=== PATIENT | female | born 1995 | race Caucasian/White ===

== ENCOUNTER 2017-09-17 23:29 | Observation (INO) | payer BC ==
[~2017-09-17] VITALS: Ht 157.5 cm; Wt 102.1 kg
[2017-09-18 01:16] LABS: BILIRUBIN,URINE NEGATIVE (NEGATIVE); CLARITY/URINE CLEAR (CLEAR); COLOR,URINE YELLOW (YELLOW); GLUCOSE,URINE NEGATIVE (NEGATIVE); KETONES,URINE NEGATIVE (NEGATIVE); LEUKOCYTE ESTERASE ,URINE NEGATIVE (NEGATIVE); NITRITE, URINE NEGATIVE (NEGATIVE); PROTEIN URINE NEGATIVE (NEGATIVE); UROBILINOGEN,URINE 0.2 (0.2-1.0)
[2017-09-18 01:17] LABS: BLOOD, URINE TRACE (NEGATIVE)
[2017-09-18 01:24] LABS: BACTERIA,URINE FEW /HPF (None Seen); RBC,URINE 0-3 /HPF (0-3); WBC,URINE 0-3 /HPF (0-3)
== END 2017-09-18 01:26 | disposition home or self-care (01) ==
LOC: SPU 23:29
PROVIDERS: ADMIT Obstetrics & Gynecology; ATTEND Obstetrics & Gynecology
DX: O42.912 Preterm premature rupture of membranes, unspecified as to length of time between rupture and onset of labor, second trimester (principal); O26.892 Other specified pregnancy related conditions, second trimester; R10.9 Unspecified abdominal pain; Z3A.26 26 weeks gestation of pregnancy
CPT/HCPCS: 59025; 76815; 81000; G0378 ×2

== ENCOUNTER 2017-11-06 21:30 | Observation (INO) | payer BC ==
[2017-11-06 22:26] VITALS: BP_SYST 124
== END 2017-11-06 22:00 | disposition home or self-care (01) ==
LOC: SPU 21:30 → UNDODISOB 22:00
PROVIDERS: ADMIT Obstetrics & Gynecology; ATTEND Obstetrics & Gynecology
DX: O21.2 Late vomiting of pregnancy (principal); O26.893 Other specified pregnancy related conditions, third trimester; O99.89 Other specified diseases and conditions complicating pregnancy, childbirth and the puerperium; M54.5 Low back pain; Z3A.34 34 weeks gestation of pregnancy
CPT/HCPCS: 81002; G0378

== ENCOUNTER 2017-11-30 08:40 | Inpatient (IN) | payer BC ==
[~2017-11-30] VITALS: Ht 157.5 cm; Wt 110.7 kg
[2017-11-30] MEDS ORDERED: TERBUTALINE SULFATE 1 MG/ML VIAL SUBCUT ONE (09:30)
[2017-11-30] MEDS ORDERED: MISOPROSTOL 100 MCG TABLET (CYTOTEC) PO PRN ×2 (09:30→10:31)
[2017-11-30] MEDS ORDERED: NALBUPHINE HCL 10 MG/ML AMP IVP PRN (09:30)
[2017-11-30 10:25] LABS: BASOPHILS % (AUTO) 0.3 % (0.0-2.0); EOSINOPHILS % (AUTO) 0.4 % (0.0-4.0); HEMATOCRIT 36.6 % (36-48); LYMPHOCYTES # (AUTO) 1.6 K/uL (1.0-5.5); LYMPHOCYTES % (AUTO) 13.6 % (20.5-51.5); MEAN CORPUSCULAR HEMOGLOBIN 30 pg (27-31); MEAN CORPUSCULAR HGB CONC 33 % (32-36); MEAN CORPUSCULAR VOLUME 90 fL (79.0-98.0); MONOCYTES # (AUTO) 0.7 K/uL (0.0-1.0); MONOCYTES % (AUTO) 5.8 % (1.7-9.3); NEUTROPHILS # (AUTO) 9.2 K/uL (1.8-7.7); NEUTROPHILS % (AUTO) 79.9 % (40.0-70.0); PLATELET COUNT (AUTO) 293 K/uL (130-430); RED BLOOD CELL COUNT(AUTO) 4.05 MIL/uL (4.2-6.2); RED CELL DISTRIBUTION WIDTH 13.7 % (9.0-15.0); WHITE BLOOD COUNT (AUTO) 11.5 K/uL (4.8-10.8)
[2017-11-30] MEDS: LR 1,000 ML IV SCH (10:30)
[2017-11-30] MEDS ORDERED: OXYTOCIN/NORMAL SALINE 1,000 ML IV SCH (15:02)
[2017-11-30] MEDS ORDERED: OXYTOCIN 10 UNIT/ML VIAL ONE (15:08)
[2017-11-30] MEDS ORDERED: fentaNYL CITRATE/PF 100 MCG/2 ML AMP ONE (18:06)
[2017-11-30] MEDS ORDERED: LR 500 ML IV ONE (19:05)
[2017-11-30] MEDS ORDERED: FENT2mCg/mL-ROPIVA0.2%/NS EPID 150 ML EP SCH (19:15)
[2017-11-30 19:50] VITALS: BP_SYST 139
[2017-11-30] MEDS ORDERED: D5/0.45 NS 1,000 ML IV ONE (21:15)
[2017-12-01] MEDS ORDERED: CLINDAMYCIN 900 mg/50mL D5W 50 ML IV ONE (07:00)
[2017-12-01] MEDS: LR 1,000 ML IV SCH (07:12)
[2017-12-01] MEDS ORDERED: LR 500 ML IV ONE (09:41)
[2017-12-01] MEDS ORDERED: fentaNYL CITRATE/PF 100 MCG/2 ML AMP IVP PRN ×2 (09:45)
[2017-12-01] MEDS ORDERED: NALOXONE HCL 0.4 MG/ML AMP (NARCAN) IVP PRN ×2 (09:45)
[2017-12-01] MEDS ORDERED: KETOROLAC TROMETHAMINE 60 MG/2 ML VIAL IM PRN (09:45)
[2017-12-01] MEDS ORDERED: ONDANSETRON HCL 4 MG/2 ML VIAL IVP PRN ×2 (09:45)
[2017-12-01] MEDS ORDERED: NALBUPHINE HCL 10 MG/ML AMP IVP PRN (09:45)
[2017-12-01] MEDS ORDERED: METOCLOPRAMIDE HCL 10 MG/2 ML VIAL IVP PRN (09:45)
[2017-12-01] MEDS ORDERED: FENT2mCg/mL-ROPIVA0.2%/NS EPID 150 ML EP SCH (09:45)
[2017-12-01] MEDS ORDERED: OXYTOCIN/NORMAL SALINE 1,000 ML IV ONE ×2 (09:55→10:32)
[2017-12-01] MEDS ORDERED: LR 1,000 ML IV SCH (09:55)
[2017-12-01] MEDS ORDERED: OXYCODONE/ACETAMINOPHEN 5-325 TABLET PO PRN (10:00)
[2017-12-01] MEDS ORDERED: BISACODYL 10 MG/SUPPOSITORY RC PRN (10:00)
[2017-12-01] MEDS ORDERED: SENNOSIDES/DOCUSATE SODIUM 1 TAB TABLET(SENOKOT-S) PO PRN (10:00)
[2017-12-01] MEDS ORDERED: MEASLES,MUMPS&RUBELLA VACC/PF 12500 UNIT/0.5 ML VIAL SUBQ PRN (10:00)
[2017-12-01] MEDS ORDERED: ANUSOL 1 EA SUPP.RECT (PREPARATION H) RC PRN (10:00)
[2017-12-01] MEDS ORDERED: ACETAMINOPHEN 325 MG TABLET PO PRN (10:00)
[2017-12-01] MEDS ORDERED: RHO(D) IMMUNE GLOBULIN/MALTOSE 1500 UNITS/1.3 ML (WINHRO) IM PRN (10:00)
[2017-12-01] MEDS ORDERED: LANOLIN 7 GM OINT. TP PRN (10:00)
[2017-12-01 10:28] VITALS: BP_SYST 116
[2017-12-01] MEDS: DIPHENHYDRAMINE INJ 50 MG/ML VIAL IVP PRN ×2 (12:06→21:18)
[2017-12-01] MEDS ORDERED: ROPIVACAINE 0.2% (NAROPIN) PF SOLUTION 100 ML BOTTLE EP ONE (16:35)
[2017-12-01] MEDS ORDERED: TEMAZEPAM 15 MG CAPSULE PO PRN (21:00)
[2017-12-02] MEDS: IBUPROFEN 600 MG TABLET PO SCH ×4 (00:03→17:49)
[2017-12-02] MEDS: DOCUSATE SODIUM 100 MG CAPSULE PO PRN (05:40)
[2017-12-02] MEDS: SIMETHICONE 80 MG TAB.CHEW PO PRN ×3 (05:41→17:49)
[2017-12-02 06:52] LABS: BASOPHILS % (AUTO) 0.1 % (0.0-2.0); EOSINOPHILS % (AUTO) 0.1 % (0.0-4.0); HEMOGLOBIN 9.2 g/dL (12.0-16.0); LYMPHOCYTES % (AUTO) 4.8 % (20.5-51.5); MEAN CORPUSCULAR HEMOGLOBIN 31 pg (27-31); MEAN CORPUSCULAR HGB CONC 34 % (32-36); MEAN CORPUSCULAR VOLUME 91 fL (79.0-98.0); MONOCYTES # (AUTO) 1.1 K/uL (0.0-1.0); MONOCYTES % (AUTO) 4.9 % (1.7-9.3); NEUTROPHILS # (AUTO) 19.7 K/uL (1.8-7.7); NEUTROPHILS % (AUTO) 90.1 % (40.0-70.0); PLATELET COUNT (AUTO) 229 K/uL (130-430); RED BLOOD CELL COUNT(AUTO) 2.98 MIL/uL (4.2-6.2); RED CELL DISTRIBUTION WIDTH 14.5 % (9.0-15.0); WHITE BLOOD COUNT (AUTO) 21.8 K/uL (4.8-10.8)
[2017-12-02] MEDS: OXYCODONE/ACETAMINOPHEN 5-325 TABLET PO PRN (18:18)
[2017-12-03] MEDS: IBUPROFEN 600 MG TABLET PO SCH ×3 (00:11→11:42)
[2017-12-03] MEDS: OXYCODONE/ACETAMINOPHEN 5-325 TABLET PO PRN (01:39)
[2017-12-03] MEDS: SIMETHICONE 80 MG TAB.CHEW PO PRN ×2 (05:16→11:43)
[2017-12-03] MEDS: DOCUSATE SODIUM 100 MG CAPSULE PO PRN (05:17)
--- NOTE | 2017-12-03 14:28 | NUR ---
Dietitian Recommendations *Recommend [facility] diet. Please see Nutrition Assessment for details.
--- NOTE | 2017-12-03 14:32 | NUR ---
Nutrition Education RD provided nutrition education on the topics of GDM and diet management. RD provided pt w/ handouts and recipes from [employer]. RD provided contact information for future nutrition related questions.
== END 2017-12-03 14:45 | disposition home or self-care (01) | DRG 765 ==
LOC: SPU 08:40
PROVIDERS: ADMIT Obstetrics & Gynecology; ATTEND Obstetrics & Gynecology
PROC: 0U7C7ZZ Dilation of Cervix, Via Natural or Artificial Opening (ICD-10-PCS; 2017-12-01)
PROC: 10D00Z1 Extraction of Products of Conception, Low, Open Approach (ICD-10-PCS; principal; 2017-12-01 09:00)
DX: O33.9 Maternal care for disproportion, unspecified (principal); O41.03X0 Oligohydramnios, third trimester, not applicable or unspecified; O99.344 Other mental disorders complicating childbirth; E66.9 Obesity, unspecified; O99.214 Obesity complicating childbirth; O42.92 Full-term premature rupture of membranes, unspecified as to length of time between rupture and onset of labor; O24.420 Gestational diabetes mellitus in childbirth, diet controlled; O62.0 Primary inadequate contractions; O61.9 Failed induction of labor, unspecified; F32.9 Major depressive disorder, single episode, unspecified; Z88.0 Allergy status to penicillin; Z82.49 Family history of ischemic heart disease and other diseases of the circulatory system; Z37.0 Single live birth; Z3A.37 37 weeks gestation of pregnancy; Z23 Encounter for immunization; F41.9 Anxiety disorder, unspecified
CPT/HCPCS: 36415; 81002-TC; 82947-TC; 82962; 85025; 86592; 86886; 86900; 86901; 94760; J1200; J2300; J2590; J2795; J3010; J3490; J7120

== ENCOUNTER 2017-12-07 11:18 | Inpatient (IN) | payer BC ==
[~2017-12-07] VITALS: Ht 157.5 cm; Wt 108.0 kg
[2017-12-07 11:24] VITALS: BP_SYST 127
--- NOTE | 2017-12-07 11:34 | NUR ---
Ambulatory to bed 8 placed in gown for evaluation
--- NOTE | 2017-12-07 11:35 | NUR ---
Pt complains of having a fever of 102 since last night. Pt states she had a about 6 days ago and was discharged this past Sunday. Since Sunday, pt states she has been having night sweats every night and pain to vaginal and buttock area. Pt denies N/V or diarrhea. No other injuries/complaints per patient or noted.
--- NOTE | 2017-12-07 11:35 | NUR ---
md Jack Kellogg at bedside examining patient.
[2017-12-07] MEDS ORDERED: NS 1000 ML BAG IV ONE (11:45)
[2017-12-07] MEDS ORDERED: ONDANSETRON HCL 4 MG/2 ML VIAL IVP ONE (11:45)
[2017-12-07] MEDS ORDERED: MORPHINE SULFATE 10 MG/ML VIAL IVP ONE ×2 (11:45→13:00)
[2017-12-07] MEDS ORDERED: VANCOMYCIN HCL 1,000 MG in D5W 250 ML IV ONE (11:45)
[2017-12-07] MEDS ORDERED: KETOROLAC TROMETHAMINE 30 MG VIAL IVP ONE (11:45)
[2017-12-07 12:05] LABS: BASOPHILS % (AUTO) 0.1 % (0.0-2.0); EOSINOPHILS # (AUTO) 0.1 K/uL (0.0-0.4); EOSINOPHILS % (AUTO) 0.4 % (0.0-4.0); HEMATOCRIT 26.6 % (36-48); HEMOGLOBIN 8.8 g/dL (12.0-16.0); LYMPHOCYTES # (AUTO) 1.3 K/uL (1.0-5.5); MEAN CORPUSCULAR HEMOGLOBIN 30 pg (27-31); MEAN CORPUSCULAR HGB CONC 33 % (32-36); MEAN CORPUSCULAR VOLUME 91 fL (79.0-98.0); MONOCYTES # (AUTO) 1.1 K/uL (0.0-1.0); MONOCYTES % (AUTO) 5.6 % (1.7-9.3); NEUTROPHILS # (AUTO) 16.4 K/uL (1.8-7.7); NEUTROPHILS % (AUTO) 86.9 % (40.0-70.0); PLATELET COUNT (AUTO) 527 K/uL (130-430); RED BLOOD CELL COUNT(AUTO) 2.93 MIL/uL (4.2-6.2); RED CELL DISTRIBUTION WIDTH 15.1 % (9.0-15.0); WHITE BLOOD COUNT (AUTO) 18.9 K/uL (4.8-10.8)
[2017-12-07 12:18] LABS: CALCIUM 8.2 mg/dL (8.4-11.0); CREATININE 0.81 mg/dL (0.55-1.30); POTASSIUM 3.9 mmol/L (3.5-5.1)
[2017-12-07 12:22] LABS: PROTHROMBIN TIME 10.2 SECS (9.5-12.5)
[2017-12-07 12:24] LABS: ALBUMIN 1.8 g/dL (3.4-4.8); TOTAL BILIRUBIN 0.4 mg/dL (0.0-1.0)
--- NOTE | 2017-12-07 12:25 | NUR ---
Ultrasound at patient bedside. Pt tolerated well.
[2017-12-07 13:09] LABS: BILIRUBIN,URINE NEGATIVE (NEGATIVE); BLOOD, URINE 3+ (NEGATIVE); CLARITY/URINE HAZY (CLEAR); COLOR,URINE YELLOW (YELLOW); GLUCOSE,URINE NEGATIVE (NEGATIVE); KETONES,URINE NEGATIVE (NEGATIVE); LEUKOCYTE ESTERASE ,URINE 3+ (NEGATIVE); NITRITE, URINE NEGATIVE (NEGATIVE); PH,URINE 5.5 (5.0-8.0); PROTEIN URINE TRACE (NEGATIVE); UROBILINOGEN,URINE 0.2 (0.2-1.0)
[2017-12-07 13:22] LABS: WBC,URINE 20-50 /HPF (0-3)
[2017-12-07 13:23] LABS: BACTERIA,URINE MANY /HPF (None Seen); MUCUS,URINE 1+ /LPF (None Seen)
--- NOTE | 2017-12-07 13:55 | NUR ---
ADMIT NOTE Received pt from ER to the floor with a diagnosis of Wound cellulitis. Admission process initiated. patient oriented to pain management, safety and call light-teach back done.
--- NOTE | 2017-12-07 14:00 | NUR ---
Patient will be admitted to care of Dr Greenwood . Admitted to Medsurg unit. Will go to room 110B. Belongings list completed. Summary report printed. Report will be given at bedside.
[2017-12-07 14:09] VITALS: BP_SYST 117
[2017-12-07 15:11] VITALS: BP_SYST 117
--- NOTE | 2017-12-07 15:50 | NUR ---
Note Pt came to floor via gurney to room. Pt able to transfer from gurney to bed with minimal assist at 1355. Pt was oriented to room, nursing routines and procedures at this time. Pt has her father and boyfriend at bedside at this time. IV in left hand intact and patent at this time. IVF's infusing well at this time. No SOB/resp distress or abdominal incision pain/discomfort noted at this time. Pt states she has no pain when lying in bed - pain only during ambulation to restroom and when getting OOB. Refuses pain medication at this time. Abdominal incision is intact, no swelling/redness/bleeding/drainage noted at this time. 1515 - Dr Greenwood came to floor and assessment of pt completed. Pt's questions/concerns were answered at this time. Pt encouraged to deep breathe and cough 10X q1' while awake. Pt ambulated to restroom with standby assist. No needs noted. Call light within reach.
--- NOTE | 2017-12-07 18:20 | NUR ---
Note Pt assist OOB to restroom and back to bed. No SOB/resp distress at this time. Pain is tolerable at this time. IV in left hand intact and patent infusing IVF's. Pt's father has been at bedside all shift. Pt working on eating her dinner. Call light within reach.
--- NOTE | 2017-12-07 18:45 | NUR ---
Note Pt noticed left side of incision has small opening and yellowish drainage coming out. Area was cleaned and gauze was applied. Dr Greenwood called to notify about the small amount of drainage and small opening at left side of incision at this time. Pt denies any pain. Pt was checked on q1' and PRN for needs and care all shift. Call light within reach.
--- NOTE | 2017-12-07 18:47 | NUR ---
PAGED PAGED DR. FELTON @[phone] I SPOKE WITH ABBY EXCHANGE Addendum: 12/07/17 at 1851 by Jessica Cast [facility] [place]. JESUS @ [phone] I SPOKE WITH ABBY JESUS CALLED BACK @ [phone] CORRECT SPELLING OF THE DOCTOR IS EDIN FELTON.
--- NOTE | 2017-12-07 18:50 | NUR ---
Note Dr Greenwood called back and was notified that there was drainage from left end of abdominal incision - that area was cleaned and gauze was applied. No new orders given. Addendum: 12/07/17 at 1902 by Noemi Weiss RN Pt and her father were notified that Dr Greenwood was called and aware of drainage from incision site.
[2017-12-07 19:40] VITALS: BP_SYST 133
--- NOTE | 2017-12-07 19:40 | NUR ---
INITIAL CONTACT patient is alert oriented x 4. patient states she feels anxious because it was her first surgery and she is having discharge from the incision. plan of care discussed with patient and encouraged patient to increase activity. patient verbalized understanding. informed patient to call PRN, call light within reach. will continue to monitor.
[2017-12-07] MEDS: ACETAMINOPHEN 500 MG TABLET PO PRN (19:59)
--- NOTE | 2017-12-07 20:00 | NUR ---
TEMPERATURE patient's temperature is 101.9, Tylenol was given for her pain and temperature. cooling measures performed. advised patient to keep herself uncovered for now until her temperature decreases. patient verbalized understanding. will continue to monitor.
--- NOTE | 2017-12-07 21:37 | NUR ---
TEMPERATURE RECHECK reassessed patient's temperature. patient's temperature is 97.6. also assessed patient's incision site, no drainage noted at this time. answered patient's questions regarding her care, patient wanted to know if her draining would stop and if they would send her home tomorrow. explained to patient that if she does go home, it would be up to the MD if she will be going home and if she will be sent with antibiotic. if she is sent home with antibiotic, patient need to take her medication as directed and patient needs to make sure to follow up with her primary care doctor or OBGYN doctor. patient verbalized understanding. advised patient to call for assist PRN. patient verbalized understanding. will continue to monitor.
--- NOTE | 2017-12-07 23:03 | NUR ---
REPORT care endorsed to Kaitlin BOSTON. no distress noted with patient.
--- NOTE | 2017-12-07 23:20 | NUR ---
SEEN PATIENT. DRESSING TO WOUND IS SCANT AND DRY TO DRESSING.
--- NOTE | 2017-12-07 23:27 | NUR ---
PAGED I PAGED DR. JESUS @ [phone] I SPOKE WITH VETO EXCHANGE DR. JESUS CALLED BACK @ [phone]
--- NOTE | 2017-12-07 23:47 | NUR ---
PAGED DR. JESSU FOR ORDERS SPOKE WITH LARON
--- NOTE | 2017-12-07 23:50 | NUR ---
NOTIFIED AMIRA CONDE ABOUT PATIENT NEEDS OF MORE PAIN MEDS AND ANTIBIOTICS. REPORT GIVEN WITH ORDERS. INFORMED PATIENT ABOUT MD PLAN OF CARE WITH UNDERSTANDING.
[2017-12-08 00:12] VITALS: BP_SYST 126
[2017-12-08] MEDS ORDERED: OXYCODONE/ACETAMINOPHEN 5-325 TABLET PO PRN (00:30)
[2017-12-08] MEDS ORDERED: IBUPROFEN 800 MG TABLET PO PRN (00:30)
--- NOTE | 2017-12-08 00:30 | NUR ---
ASSISTED TO BATHROOM TO VOID.
--- NOTE | 2017-12-08 02:00 | NUR ---
MOTRIN AVAILABLE ,PATIENT IS SOUND ASLEEP.
[2017-12-08] MEDS ORDERED: VANCOMYCIN HCL 1000 MG/VIAL IV ONE (02:31)
[2017-12-08 02:50] VITALS: BP_SYST 139
[2017-12-08] MEDS ORDERED: VANCOMYCIN HCL 1 GM/NS PREMIX 250 ML IV SCH ×2 (03:00→07:36)
--- NOTE | 2017-12-08 03:00 | NUR ---
DUE VANCOMYCIN IVP INITIATED AFTER KINKED NEEDLE FIXED. Addendum: 12/09/17 at 0123 by Kaitlin Loving RN IVP SHOULD BE IVPB
--- NOTE | 2017-12-08 04:35 | NUR ---
PATIENT AMBULATED TO BATHROOM ASSISTED BY FAMILY
--- NOTE | 2017-12-08 05:00 | NUR ---
wound dressing: left side of post op incision oozing with thick serous with foul smell approx. 10ml. cleansed with ns covered with gauge.
--- NOTE | 2017-12-08 07:00 | NUR ---
CLOSING: NO FEVER LATER PART OF SHIFT. WAS COMFORTABLE .NO ACUTE DISTRESS. ALL NEEDS MET. SAFETY PRECAUTION IMPLEMENTED.
[2017-12-08 07:54] VITALS: BP_SYST 134
--- NOTE | 2017-12-08 08:00 | NUR ---
OPENING NOTE: MORNING REPORT WAS TAKEN FROM COPIER TECHNICIAN NURSE. PATIENT WAS COMFORTABLY ASLEEP WITH NO SIGNS OF DISTRESS. IS ASLEEP AT BEDSIDE. PATIENT IS ON ROOM AIR. VITAL SIGNS WERE TAKEN. TEMPERATURE IS SLIGHTLY ELEVATED AT 99.2. PATIENT IS NOT COMPLAINING OF PAIN OR DISCOMFORT. CALL LIGHT IS IN REACH WITH BED IN LOWEST POSITION AND 3 SIDE RAILS UP. WILL CONTINUE TO MONITOR.
--- NOTE | 2017-12-08 09:03 | NUR ---
Nutrition Update Jake Scale 18 noted. Pt admitted for wound cellulitis. Diet: regular BMI: 43.5 kg/m2 RD to follow per nutrition care standards.
[2017-12-08 09:21] LABS: EOSINOPHILS # (AUTO) 0.1 K/uL (0.0-0.4); EOSINOPHILS % (AUTO) 0.3 % (0.0-4.0); HEMATOCRIT 26.6 % (36-48); HEMOGLOBIN 8.8 g/dL (12.0-16.0); LYMPHOCYTES # (AUTO) 1.8 K/uL (1.0-5.5); LYMPHOCYTES % (AUTO) 7.8 % (20.5-51.5); MEAN CORPUSCULAR HEMOGLOBIN 30 pg (27-31); MEAN CORPUSCULAR HGB CONC 33 % (32-36); MEAN CORPUSCULAR VOLUME 91 fL (79.0-98.0); MONOCYTES % (AUTO) 4.1 % (1.7-9.3); NEUTROPHILS # (AUTO) 20.6 K/uL (1.8-7.7); NEUTROPHILS % (AUTO) 87.8 % (40.0-70.0); PLATELET COUNT (AUTO) 576 K/uL (130-430); RED BLOOD CELL COUNT(AUTO) 2.93 MIL/uL (4.2-6.2); RED CELL DISTRIBUTION WIDTH 15.1 % (9.0-15.0); WHITE BLOOD COUNT (AUTO) 23.5 K/uL (4.8-10.8)
--- NOTE | 2017-12-08 10:00 | NUR ---
NOTE: PATIENT IS AWAKE WITH NO SIGNS OF DISTRESS. PATIENT IS NOT COMPLAINING OF PAIN. PATIENT STATED NOT HAVING AN APPETITE SINCE SURGERY. IS AT BEDSIDE. PATIENT IS ON ROOM AIR. ANTIBIOTICS ARE RUNNING. WOUND BANDAGE IS DRY AND INTACT. PATIENT ASKING WHEN DOCTOR WILL STOP BY AND IF SHE WILL BE GOING HOME TODAY. BED IS IN LOWEST POSITION WITH CALL LIGHT IN REACH AND 3 SIDE RAILS UP. WILL CONTINUE TO MONITOR.
[2017-12-08 11:27] VITALS: BP_SYST 132
--- NOTE | 2017-12-08 11:51 | NUR ---
Dietitian Recommendations * Recommend continuing regular diet per MD * Recommend encourage increase PO intakes * Recommend adhere to pt food preferences LP, RD Please refer to Nutrition Assessment for details.
--- NOTE | 2017-12-08 12:00 | NUR ---
NOTE: PATIENT IS RESTING WITH NO SIGNS OF DISTRESS. PATIENT IS NOT COMPLAINING OF ANY PAIN. PATIENT IS WAITING TO TALK TO DOCTOR. PATIENT IS ON ROOM AIR. IS AT BEDSIDE. CALL LIGHT IS IN REACH WITH BED IN LOWEST POSITION AND 3 SIDE RAILS UP. WILL CONTINUE TO MONITOR.
--- NOTE | 2017-12-08 14:00 | NUR ---
NOTE: PATIENT IS AWAKE WITH NO SIGNS OF DISTRESS. MOTHER IS AT BEDSIDE. PATIENT IS ON ROOM AIR. PATIENT IS NOT COMPLAINING OF PAIN JUST SORE FROM WALKING. PATIENT WANTED PILL TO STOP BREAST FROM LEAKING. ASKING PATIENT IF SHE WAS SURE SHE DIDN'T WANT TO PUMP THEN PATIENT CHANGED MIND BECAUSE SHE THOUGHT IT WAS TEMPORARY AND NOT PERMEATE. DOCTOR CAME TO SEE PATIENT AND ANSWERED HER QUESTIONS. CALL LIGHT IS IN REACH WITH BED IN LOWEST POSITION AND SIDE RAILS UP. WILL CONTINUE TO MONITOR.
[2017-12-08] MEDS: VANCOMYCIN HCL 1 GM/NS PREMIX 250 ML IV SCH (15:05)
[2017-12-08] MEDS: ACETAMINOPHEN 500 MG TABLET PO PRN (15:14)
[2017-12-08 15:32] VITALS: BP_SYST 127
--- NOTE | 2017-12-08 16:00 | NUR ---
NOTE: PATIENT IS AWAKE WITH NO SIGNS OF DISTRESS. PATIENT WAS HAVING SOME PAIN IN ABDOMEN SO TYLENOL WAS GIVEN. PAIN REASSESSED AND PATIENT NO LONGER HAS PAIN. PATIENT IS PUMPING AT THIS TIME. PATIENT IS ON ROOM AIR. CALL LIGHT IS IN REACH WITH BED IN LOWEST POSITION AND SIDE RAILS UP. WILL CONTINUE TO MONITOR.
--- NOTE | 2017-12-08 18:00 | NUR ---
CLOSING NOTE: PATIENT IS AWAKE WITH NO SIGNS OF DISTRESS. MOTHER AND BOYFRIEND ARE AT BEDSIDE. PATIENT'S IV IS PATENT. PATIENT IS ON ROOM AIR. PATIENTS WOUND DRESSING WAS CHANGED. CLEANED WITH NS AND PATTED DRY. NO DRAINAGE WHILE CHANGING DRESSING. PATIENT WAS ABLE TO AMBULATE DURING SHIFT. BED IS IN LOWEST POSITION WITH CALL LIGHT IN REACH AND SIDE RAILS UP. WILL GIVE REPORT TO NURSING ASSOCIATE NURSE.
--- NOTE | 2017-12-08 19:37 | NUR ---
INITIAL NOTES Received patient on bed awake, alert oriented with family on the bedside. Breathing even and unlabored maintained on position of comfort, maintained safety precaution, no pain noted. With IV on the L hand intact clean and dry. Explained thw plan of care and verbalized understanding, call light within reach, will continue to monitor.
[2017-12-08 20:00] VITALS: BP_SYST 122
--- NOTE | 2017-12-08 22:03 | NUR ---
RN ROUNDS PATIENT ON THE BATHROOM WITH FAMILY ASSISTING THE PATIENT. BREATHING EVEN AND UNLABORED, NOT IN DISTRESS NO PAIN NOTED. MAINTAINED SAFETY PRECAUTION, CALL LIGHT WITHIN REACH WILL CONTINUE TO MONITOR.
--- NOTE | 2017-12-09 00:04 | NUR ---
RN ROUNDS PATIENT ON BED AWAKE AND ALERT, WATCHING TV WITH FAMILY, BREATHING EVEN AND UNLABORED, NO SOB NOTED, MAINTAINED SAFETY PRECAUTION, WILL CONTINUE TO MONITOR, CALL LIGHT WITHIN REACH.
[2017-12-09 00:37] VITALS: BP_SYST 137
[2017-12-09] MEDS: VANCOMYCIN HCL 1 GM/NS PREMIX 250 ML IV SCH ×2 (02:10→14:31)
--- NOTE | 2017-12-09 02:12 | NUR ---
RN ROUNDS Patient on bed sleeping and resting breathing even and unlabored, maintained safety precaution, maintained position of comfort patient turns herself from side to side. call light within reach will continue to monitor.
--- NOTE | 2017-12-09 04:00 | NUR ---
RN ROUNDS PATIENT ON BED AWAKE AND ALERT, PATIENT ASKED FOR ORANGE JUICE, GIVEN. PATIENT IS ANXIOUS OF THE INFECTION OF THE C SECTION AND, PATIENT GIVEN EDUCATION. WOUND DRESSING DONE, INCISION HAS SEROUS DRAINAGE, LESS THAN 0.5 ML IN AMOUNT, SITE IS CEMENT FINISHER FOR THE PATIENT, NO PAIN NOTED, NO FEVER NOTED. ENCOURAGED PATIENT TO REPORT ANY UNTOWARD S/SX. WILL CONTINUE TO MONITOR CALL LIGHT WITHIN REACH.
--- NOTE | 2017-12-09 06:29 | NUR ---
CLOSING NOTES PATIENT ON BED SLEEPING AND RESTING BREATHING EVEN AND UNLABORED MAINTAINED ON POSITION OF COMFORT MAINTAINED ON SAFETY PRECAUTION. NO PAIN NOTED, NO EPISODE OF FEVER DURING THE SHIFT, WOUND CARE DONE, ALL DUE MEDICATIONS GIVEN AND TOLERATED WELL. PATIENT STATED THAT SHE STILL HAVE SOME TENDERNESS ON THE LOWER ABDOMINAL AREA BUT IS TOLERABLE. WILL GIVE REPORT TO AM NURSE, WILL CONTINUE TO MONITOR, CALL LIGHT WITHIN REACH.
--- NOTE | 2017-12-09 08:00 | NUR ---
OPENING NOTE: MORNING REPORT WAS TAKEN FROM HAND LAMINATOR NURSE. PATIENT WAS ASLEEP WITH NO SIGNS OF DISTRESS. BOY FRIEND IS AT BEDSIDE SLEEPING. PATIENT IS ON ROOM AIR. VITALS WERE TAKEN AND WITH IN NORMAL LEVELS. IV WAS CHECKED AND WAS PULLED OUT. WILL PUT IN A NEW IV. CALL LIGHT IS IN REACH WITH BED IN LOWEST POSITION AND 2 SIDE RAILS UP. WILL CONTINUE TO MONITOR.
[2017-12-09 08:13] VITALS: BP_SYST 120
--- NOTE | 2017-12-09 10:00 | NUR ---
NOTE: PATIENT IS AWAKE WITH NO SIGNS OF DISTRESS. PATIENT IS NOT COMPLAINING OF PAIN. WOUND WAS LEAKING SO CHANGED DRESSING. IV WAS PUT IN ON RIGHT HAND 22G. ANTIBIOTICS WERE HUNG. PATIENT WENT TO RESTROOM AND OTHER SIDE STARTED LEAKING. HELPED PATIENT TO BED AND CLEANED WITH NS AND PUT GAUZE ON TOP. CALL LIGHT IS IN REACH WITH 2 SIDE RAILS UP AND BED IN LOWEST POSITION. WILL CONTINUE TO MONITOR.
--- NOTE | 2017-12-09 10:50 | NUR ---
DR. JESUS PAGED TO INFORM OF OOZING INCISION ON NOW RIGHT SIDE.
--- NOTE | 2017-12-09 12:00 | NUR ---
NOTE: PATIENT IS AWAKE WITH NO SIGNS OF DISTRESS. DRESSING WAS DRIPPING. CLEANED WITH NS AND PATTED DRY WITH GAUZE. COVERED WITH GAUZE AND ABDOMINAL PAD. DR. JESUS CAME IN TO SEE PATIENT. DOCTOR WANTS TO DISCHARGE PATIENT AFTER LAST ANTIBIOTIC. PATIENT WILL FOLLOW UP WITH DR FOR WOUND CARE. PATIENT'S QUESTIONS WERE ASKED BY DOCTOR. MOTHER IS AT BEDSIDE. CALL LIGHT IS IN REACH WITH 2 SIDE RAILS UP AND BED IN LOWEST POSITION. WILL CONTINUE TO MONITOR.
[2017-12-09 12:24] VITALS: BP_SYST 132
--- NOTE | 2017-12-09 14:00 | NUR ---
NOTE: PATIENT IS AWAKE SITTING IN CHAIR PUMPING. PATIENT HAS NO SIGNS OF DISTRESS. PATIENT IS NOT COMPLAINING OF PAIN. PATIENT MOVED TO BED. PATIENT WAS HOOKED UP TO START LAST ANTIBIOTIC. MOTHER IS AT BEDSIDE. WILL WORK ON DISCHARGE WHILE ANTIBIOTIC IS INFUSING. CALL LIGHT IS IN REACH WITH 2 SIDE RAILS UP AND BED IN LOWEST POSITION. WILL CONTINUE TO MONITOR.
[2017-12-09 15:51] VITALS: BP_SYST 124
[2017-12-09 16:36] VITALS: BP_SYST 124
== END 2017-12-09 17:36 | disposition home or self-care (01) | DRG 919 ==
LOC: SED 11:18 → SMU 13:27
PROVIDERS: ADMIT Obstetrics & Gynecology; ATTEND Obstetrics & Gynecology
DX: L76.34 Postprocedural seroma of skin and subcutaneous tissue following other procedure (principal); A41.9 Sepsis, unspecified organism; Z79.899 Other long term (current) drug therapy; Y83.8 Other surgical procedures as the cause of abnormal reaction of the patient, or of later complication, without mention of misadventure at the time of the procedure
CPT/HCPCS: 36415; 71045; 76856-TC; 80053; 81000-TC; 83605; 83880; 84484; 85025; 85610-TC; 85730-TC; 87040-TC; 87086; 93005; 96365; 99285; J1885; J1956; J2270; J3370; J7030; J7050; J7060